=== PATIENT | male | born 1940 | race Caucasian/White ===

== ENCOUNTER → 2019-02-10 | Outpatient (CLI) | payer MEDICARE ==
--- NOTE | 2019-02-10 14:08 | CT ---
EXAMINATION TYPE: CT abdomen pelvis w con DATE OF EXAM: 02/10/2019 COMPARISON: None HISTORY: Prostate cancer CT DLP: 1551.7 mGycm Automated exposure control for dose reduction was used. TECHNIQUE: Helical acquisition of images from the lung bases through the pelvis have been completed. CONTRAST: Performed with Oral Contrast and with IV Contrast, patient injected with 100 mL of Isovue 300. FINDINGS: There are coronary artery calcifications present. Left inguinal hernia is noted containing fat and soft tissue possibly due to some local inflammatory change. LUNG BASES: No significant abnormality is appreciated. AORTA: No significant abnormality is appreciated. LIVER/GB: Liver shows low attenuation possibly due to hepatic steatosis. Liver is enlarged. Gallbladd er is normal. PANCREAS: No significant abnormality is seen. SPLEEN: No significant abnormality is seen. ADRENALS: No significant abnormality is seen. KIDNEYS: No significant abnormality is seen. REPRODUCTIVE ORGANS: Prostate shows multiple metallic seeds present within its substance. BOWEL: Some diverticular changes associated with the sigmoid colon. The appendix is normal. There is no bowel obstruction. FREE AIR: No Free Air visible. ASCITES: None visible. PELVIC ADENOPATHY: None visualized. RETROPERITONEAL ADENOPATHY: No Retroperitoneal Adenopathy visible. URINARY BLADDER: No significant abnormality is seen. OSSEOUS STRUCTURES: Degenerative disc changes, facet arthropathy noted especially in the lumbar spin e. IMPRESSION: FINDINGS COMPATIBLE WITH POST TREATMENT CHANGE THE PROSTATE. HEPATIC STEATOSIS WITH HEPATOMEGALY. DIV ERTICULOSIS. LEFT INGUINAL HERNIA.
--- NOTE | 2019-02-10 16:16 | NM ---
EXAMINATION TYPE: NM bone scan whole body DATE OF EXAM: 02/10/2019 COMPARISON: CT of the abdomen and pelvis dated 02/10/2019 HISTORY: Prostate cancer. Delayed whole-body scanning was performed following the injection of 24.6 mCi Tc 99m MDP. Images acq uired 3 hours post injection. FINDINGS: There is S-shaped scoliosis of the thoracolumbar spine. Uptake is seen diffusely with no focality. Sy mmetric uptake is also seen of the glenohumeral joints, chromic clavicular joints, sternoclavicular j oints, and sacroiliac joints. Photopenic defect of the right knee is seen from prior arthroplasty. Fo aspen uptake overlying the left patellar region and left lateral femoral condyle as well as left first metatarsal phalangeal joint are presumed to be due to arthropathy although correlation with radiograp hs is recommended. Uptake is also seen in the hindfeet and mid feet, likely degenerative. Subtle upta ke of the ninth rib on the left posteriorly. This is also seen to a lesser degree of the bilateral 10 th ribs on the small [id number] images. Focal uptake is also seen near the spinous process of S1 a nd left sacroiliac joint that is slightly asymmetric to the right. Some asymmetric sclerosis is seen on CT of the same date on axial series 3 image 58. IMPRESSION: 1. Foci of radiotracer uptake within the bilateral posterior 10th rib and left ninth rib may be postt raumatic or less likely neoplastic. Correlation with rib radiographs is recommended. 2. Focal radiotracer uptake within the left knee and left first metatarsophalangeal joint are presume d to be degenerative however correlation with x-rays are also recommended. 3. Slight focal radiotracer uptake along the left sacroiliac joint and spinous process of S1 correspo nding to very subtle sclerosis of the CT of the same date. This is possibly degenerative. Attention o n follow-up exams. 4. Degenerative changes of the axial and appendicular skeleton.
== END | disposition home or self-care (01) ==
LOC: RADNMMAIN 09:54
PROVIDERS: ATTEND Urology
DX: C61 Malignant neoplasm of prostate (principal); K76.0 Fatty (change of) liver, not elsewhere classified; R16.0 Hepatomegaly, not elsewhere classified; K57.30 Diverticulosis of large intestine without perforation or abscess without bleeding; K40.90 Unilateral inguinal hernia, without obstruction or gangrene, not specified as recurrent; R93.7 Abnormal findings on diagnostic imaging of other parts of musculoskeletal system; Z88.1 Allergy status to other antibiotic agents
CPT/HCPCS: 82565; 84520; 74177; 36415; 78306; A9503; Q9967 ×2

== ENCOUNTER → 2019-02-18 | Outpatient (CLI) | payer MEDICARE | END | disposition home or self-care (01) | LOC: LABWHC1 12:31 | PROVIDERS: ATTEND Radiology Radiation Oncology | DX: C61 Malignant neoplasm of prostate (principal) | CPT/HCPCS: 36415; 84153 ==

== ENCOUNTER → 2019-06-08 | Outpatient (CLI) | payer MEDICARE ==
[2019-06-08 11:27] LABS: African American GFR (CKD) >90 (>60 ml/min/1.73 sqM); Blood Urea Nitrogen 23 mg/dL (9-20); Non-African American GFR(CKD) 83 (>60 ml/min/1.73 sqM)
--- NOTE | 2019-06-08 16:00 | CT ---
EXAMINATION TYPE: CT pelvis wo/w con DATE OF EXAM: 06/08/2019 COMPARISON: None HISTORY: prostate CA follow up CT DLP: 2193 mGycm Automated exposure control for dose reduction was used. CONTRAST: Performed without and with IV Contrast, patient injected with 100 mL of Isovue 300. FINDINGS: CT pelvis: Vascular calcification is in the distal abdominal aorta. The distal inferior vena cava is unremarkable. Loops of bowel distended with oral contrast are normal. There are loops of bowel lacking oral contras t limiting their evaluation. Diverticular changes are within the distal sigmoid colon. There is a lef t inguinal hernia containing mesenteric fat. The appendix is visualized is normal. Urinary bladder is normal. Multiple prostate seeds are within the periphery of the prostate. Rectum appears unremarkable. Presac ral space is normal The osseous structures are without lytic or suspicious sclerotic areas. Couple of tiny punctate scler otic areas within the left femoral head in the medial left iliac wing. Degenerative disc changes are noted L5-S1. IMPRESSION: STATUS POST PROSTATE BRACHYTHERAPY SEED PLACEMENT. 2. LEFT INGUINAL HERNIA. 3. NO SUSPICIOUS INTERVAL CHANGES
== END | disposition home or self-care (01) ==
LOC: RADCTMAIN 10:27
PROVIDERS: ATTEND Radiology Radiation Oncology
DX: K40.90 Unilateral inguinal hernia, without obstruction or gangrene, not specified as recurrent (principal); C61 Malignant neoplasm of prostate; Z98.890 Other specified postprocedural states
CPT/HCPCS: 82565; 84520; 72194; 36415; Q9967

== ENCOUNTER → 2022-08-30 | Outpatient (CLI) | payer MEDICARE ==
--- NOTE | 2022-08-30 14:43 | NM ---
EXAMINATION TYPE: NM bone scan whole body DATE OF EXAM: 08/30/2022 COMPARISON: Prior whole body bone scan February 10, 2019. Outside lumbar spine x-ray August 03, 2022. CT abdomen February 10, 2019 CLINICAL INDICATION: Male, 81 years old with history of M47.817; history of prostate cancer. Lumbar r egion spinal stenosis and spondylosis along with scoliosis and weakness. Recent abnormal outside lumb ar spine MRI T12 level. Delayed whole-body scanning was performed following the injection of 23.2 mCi Tc 99m MDP. Images acq uired 3 hours post injection. Whole body images anterior and posterior projection along with addition al spot views of the head, neck, Thorax and abdomen are acquired. FINDINGS: No suspicious increased radiotracer uptake to the T12 level at area of concern prior outsid e MRI report. Increased radiotracer uptake bilateral sternoclavicular joints is presumed product of degenerative ch levi. Small additional areas of increased radiotracer uptake in the lower cervical spine favor produc t of degenerative change given lack of additional areas of abnormal radiotracer uptake. Some urine le akage is noted. No convincing scintigraphic evidence of metastatic disease to the bone IMPRESSION: As above.
== END | disposition home or self-care (01) ==
LOC: RADNMMAIN 09:50
PROVIDERS: ATTEND Physical Medicine & Rehabilitation
DX: M47.817 Spondylosis without myelopathy or radiculopathy, lumbosacral region (principal); M48.062 Spinal stenosis, lumbar region with neurogenic claudication; R53.1 Weakness; M41.86 Other forms of scoliosis, lumbar region; M48.061 Spinal stenosis, lumbar region without neurogenic claudication; M47.816 Spondylosis without myelopathy or radiculopathy, lumbar region; Z85.46 Personal history of malignant neoplasm of prostate; Z86.69 Personal history of other diseases of the nervous system and sense organs
CPT/HCPCS: 78306; A9503

== ENCOUNTER 2023-07-19 13:15 | Inpatient (IN) | payer MEDICARE ==
--- NOTE | 2023-07-19 13:41 | ED ---
General Adult HPI - General Chief complaint: Recheck/Abnormal Lab/Rx Stated complaint: Sent by PCP-poss L leg blood clot Time Seen by Provider: 07/19/23 13:29 Source: patient, RN notes reviewed, old records reviewed Mode of arrival: ambulatory - History of Present Illness Initial comments: 82-year-old male presenting with left leg swelling. Patient was sent from outpatient ultrasound with positive DVT. Patient states he has had left leg swelling and pain for the past several weeks. He does also report exertional dyspnea. He denies central chest pain. - Related Data Allergies Allergy/AdvReac Type Severity Reaction Status Date / Time No Known Allergies Allergy Verified 07/19/23 13:25 Review of Systems ROS Statement: Those systems with pertinent positive or pertinent negative responses have been documented in the HPI. ROS Other: All systems not noted in ROS Statement are negative. Past Medical History Past Medical History: Hypertension History of Any Multi-Drug Resistant Organisms: None Reported Additional Past Surgical History / Comment(s): cataract. right knee replacement Past Psychological History: No Psychological Hx Reported Smoking Status: Never smoker Past Alcohol Use History: None Reported Past Drug Use History: None Reported General Exam General appearance: alert, in no apparent distress Head exam: Present: atraumatic, normocephalic Eye exam: Present: normal appearance, PERRL ENT exam: Present: normal exam Neck exam: Present: normal inspection. Absent: tenderness, meningismus Respiratory exam: Present: normal lung sounds bilaterally. Absent: respiratory distress, wheezes, rales Cardiovascular Exam: Present: regular rate, normal rhythm GI/Abdominal exam: Present: soft. Absent: distended, tenderness, guarding Extremities exam: Present: pedal edema (Left leg swelling, pedal edema, mild erythema) Neurological exam: Present: alert, oriented X3 Psychiatric exam: Present: normal affect Course Vital Signs 07/19/23 07/19/23 13:17 15:05 Temperature 97.3 F L Pulse Rate 86 78 Respiratory 18 16 Rate Blood Pressure 147/74 153/76 O2 Sat by Pulse 97 96 Oximetry Medical Decision Making - Medical Decision Making Was pt. sent in by a medical professional or institution (, PA, TELEPHONE ANSWERER, urgent care, hospital, or correction...) When possible be specific @ -No Did you speak to anyone other than the patient for history (EMS, parent, family, police, friend...)? What history was obtained from this source @ -No Did you review nursing and triage notes (agree or disagree)? Why? @ -I reviewed and agree with nursing and triage notes Were old charts reviewed (outside hosp., previous admission, EMS record, old EKG, old radiological studies, urgent care reports/EKG's, correction records)? Report findings @ -No old charts were reviewed Differential Diagnosis (chest pain, altered mental status, abdominal pain women, abdominal pain men, vaginal bleeding, weakness, fever, dyspnea, syncope, headache, dizziness, GI bleed, back pain, seizure, CVA, palpatations, mental health, musculoskeletal)? @ -Not applicable EKG interpreted by me (3pts min.). @ -Sinus rhythm low voltage rate of 76, NE interval 173, QRS duration 90, QTc 358, no ST segment elevation. X-rays interpreted by me (1pt min.). @ -None done CT interpreted by me (1pt min.). @ -CT angiography positive for bilateral pulmonary embolism. U/S interpreted by me (1pt. min.). @ -None done What testing was considered but not performed or refused? (CT, X-rays, U/S, labs)? Why? @ -None What meds were considered but not given or refused? Why? @ -None Did you discuss the management of the patient with other professionals (professionals i.e. , PA, TELEPHONE ANSWERER, lab, RT, psych nurse, social security specialist, defence force senior officer, teacher, security flex utility officer, case mgr)? Give summary @ -Dr. Deleon Was smoking cessation discussed for >3mins.? @ -No Was critical care preformed (if so, how long)? @Yes, 35 minutes Were there social determinants of health that impacted care today? How? ( Homelessness, low income, unemployed, alcoholism, drug addiction, transportation, low edu. Level, literacy, decrease access to med. care, long term, rehab)? @ -No Was there de-escalation of care discussed even if they declined (Discuss DNR or withdrawal of care, Hospice)? DNR status @ -No What co-morbidities impacted this encounter? (DM, HTN, Smoking, COPD, CAD, Cancer, CVA, ARF, Chemo, Hep., AIDS, mental health diagnosis, sleep apnea, morbid obesity)? @ -None Was patient admitted / discharged? Hospital course, mention meds given and route, prescriptions, significant lab abnormalities, going to OR and other pertinent info. @ -[82-year-old male presenting from outpatient ultrasound positive for DVT. Patient does have exertional dyspnea. Vital signs are stable. Workup is initiated for pulmonary embolism. Patient has stable hemoglobin, normal electrolytes, negative initial troponin. CT angiography is positive for bilateral pulmonary embolism without right heart strain. Echo will be obtained as well as serial cardiac enzymes. Patient is admitted to Dr. Deleon who is aware with vascular surgery on consult. Undiagnosed new problem with uncertain prognosis? @ -No Drug Therapy requiring intensive monitoring for toxicity (Heparin, Nitro, Insulin, Cardizem)? @ -No Were any procedures done? @ -No Diagnosis/symptom? @ -Bilateral pulmonary embolism, DVT Acute, or Chronic, or Acute on Chronic? @Acute Uncomplicated (without systemic symptoms) or Complicated (systemic symptoms)? @ -Complicated Side effects of treatment? @ -No Exacerbation, Progression, or Severe Exacerbation? @ -No Poses a threat to life or bodily function? How? (Chest pain, [place], [place], pneumonia, PE, COPD, DKA, ARF, appy, cholecystitis, CVA, Diverticulitis, Homicidal, Suicidal, threat to staff... and all critical care pts) @ -Yes, pulmonary embolism - Lab Data Result diagrams: 07/19/23 13:47 07/19/23 13:47 Lab Results 07/19/23 07/19/23 07/19/23 Range/Units 13:47 13:47 13:47 WBC 8.9 (3.8-10.6) k/uL RBC 4.80 (4.30-5.90) m/uL Hgb 15.1 (13.0-17.5) gm/dL Hct 47.5 (39.0-53.0) % MCV 99.0 (80.0-100.0) fL MCH 31.3 (25.0-35.0) pg MCHC 31.7 (31.0-37.0) g/dL RDW 13.7 (11.5-15.5) % Plt Count 148 L (150-450) k/uL MPV 7.4 Neutrophils % 83 % Lymphocytes % 8 % Monocytes % 7 % Eosinophils % 0 % Basophils % 1 % Neutrophils # 7.4 (1.3-7.7) k/uL Lymphocytes # 0.7 L (1.0-4.8) k/uL Monocytes # 0.6 (0-1.0) k/uL Eosinophils # 0.0 (0-0.7) k/uL Basophils # 0.1 (0-0.2) k/uL PT 10.3 (10.0-12.5) sec INR 0.9 (<1.2) APTT 23.5 (22.0-30.0) sec Sodium 137 (137-145) mmol/L Potassium 5.8 H (3.5-5.1) mmol/L Chloride 107 (98-107) mmol/L Carbon Dioxide 24 (22-30) mmol/L Anion Gap 6 mmol/L BUN 28 H (9-20) mg/dL Creatinine 0.81 (0.66-1.25) mg/dL Est GFR (CKD-EPI)AfAm >90 (>60 ml/min/1.73 sqM) Est GFR (CKD-EPI)NonAf 83 (>60 ml/min/1.73 sqM) Glucose 111 H (74-99) mg/dL Calcium 9.5 (8.4-10.2) mg/dL Magnesium 2.2 (1.6-2.3) mg/dL Total Bilirubin 1.7 H (0.2-1.3) mg/dL AST 44 (17-59) U/L ALT 6 (4-49) U/L Alkaline Phosphatase 79 (38-126) U/L Troponin I (0.000-0.034) ng/mL Total Protein 7.2 (6.3-8.2) g/dL Albumin 4.0 (3.5-5.0) g/dL 07/19/23 Range/Units 13:47 WBC (3.8-10.6) k/uL RBC (4.30-5.90) m/uL Hgb (13.0-17.5) gm/dL Hct (39.0-53.0) % MCV (80.0-100.0) fL MCH (25.0-35.0) pg MCHC (31.0-37.0) g/dL RDW (11.5-15.5) % Plt Count (150-450) k/uL MPV Neutrophils % % Lymphocytes % % Monocytes % % Eosinophils % % Basophils % % Neutrophils # (1.3-7.7) k/uL Lymphocytes # (1.0-4.8) k/uL Monocytes # (0-1.0) k/uL Eosinophils # (0-0.7) k/uL Basophils # (0-0.2) k/uL PT (10.0-12.5) sec INR (<1.2) APTT (22.0-30.0) sec Sodium (137-145) mmol/L Potassium (3.5-5.1) mmol/L Chloride (98-107) mmol/L Carbon Dioxide (22-30) mmol/L Anion Gap mmol/L BUN (9-20) mg/dL Creatinine (0.66-1.25) mg/dL Est GFR (CKD-EPI)AfAm (>60 ml/min/1.73 sqM) Est GFR (CKD-EPI)NonAf (>60 ml/min/1.73 sqM) Glucose (74-99) mg/dL Calcium (8.4-10.2) mg/dL Magnesium (1.6-2.3) mg/dL Total Bilirubin (0.2-1.3) mg/dL AST (17-59) U/L ALT (4-49) U/L Alkaline Phosphatase (38-126) U/L Troponin I <0.012 (0.000-0.034) ng/mL Total Protein (6.3-8.2) g/dL Albumin (3.5-5.0) g/dL Critical Care Time Critical Care Time: Yes Total Critical Care Time: 35 Disposition Clinical Impression: Bilateral pulmonary embolism Disposition: ADMITTED IP TO THIS [facility] Condition: Stable Is patient prescribed a controlled substance at d/c from ED?: No Referrals: Keivn Quinonez MD [Primary Care Provider] - 1-2 days Time of Disposition: 15:34
[2023-07-19 14:16] LABS: Basophils # (A) 0.1 k/uL (0-0.2); Basophils % (A) 1 %; Eosinophils % (A) 0 %; HCT 47.5 % (39.0-53.0); HGB 15.1 gm/dL (13.0-17.5); Lymphocytes # (A) 0.7 k/uL (1.0-4.8); Lymphocytes % (A) 8 %; MCH 31.3 pg (25.0-35.0); MCHC 31.7 g/dL (31.0-37.0); Mean Platelet Volume 7.4; Monocytes # (A) 0.6 k/uL (0-1.0); Monocytes % (A) 7 %; Neutrophils # (A) 7.4 k/uL (1.3-7.7); Neutrophils % (A) 83 %; Platelet Count 148 k/uL (150-450); RDW 13.7 % (11.5-15.5); WBC 8.9 k/uL (3.8-10.6)
[2023-07-19 14:21] LABS: INR 0.9 (<1.2); Partial Thromboplastin Time 23.5 sec (22.0-30.0); Prothrombin Time 10.3 sec (10.0-12.5)
[2023-07-19] MEDS ORDERED: HEPARIN SODIUM 1,000 UN/ML (10ML VL) IV PRN (14:29)
[2023-07-19 14:32] LABS: ALT 6 U/L (4-49); AST 44 U/L (17-59); African American GFR (CKD) >90 (>60 ml/min/1.73 sqM); Alkaline Phosphatase 79 U/L (38-126); Anion Gap 6 mmol/L; Blood Urea Nitrogen 28 mg/dL (9-20); Calcium 9.5 mg/dL (8.4-10.2); Carbon Dioxide 24 mmol/L (22-30); Chloride 107 mmol/L (98-107); Glucose 111 mg/dL (74-99); Magnesium 2.2 mg/dL (1.6-2.3); Non-African American GFR(CKD) 83 (>60 ml/min/1.73 sqM); Sodium 137 mmol/L (137-145); Total Bilirubin 1.7 mg/dL (0.2-1.3); Total Protein 7.2 g/dL (6.3-8.2)
[2023-07-19 14:37] LABS: Potassium 5.8 mmol/L (3.5-5.1)
[2023-07-19] MEDS: HEPARIN SOD,PORK IN 0.45% NACL 25,000 UNIT in 0.45% NACL 1 250ML.BAG IV SCH (15:00)
[2023-07-19] MEDS: HEPARIN SODIUM 1,000 UN/ML (10ML VL) IV ONE (15:02)
[2023-07-19] MEDS ORDERED: NALOXONE 0.4 MG/ML 1 ML VIAL IV PRN (15:29)
--- NOTE | 2023-07-19 15:33 | CT ---
EXAMINATION TYPE: CT angio chest DATE OF EXAM: 07/19/2023 3:08 PM COMPARISON: 07/08/2015 HISTORY: SOB, hx of DVT CT DLP: 526.4 mGycm Automated exposure control for dose reduction was used. CONTRAST: CTA scan of the thorax is performed with IV Contrast, patient injected with 100 ml mL of Isovue 370, pulmonary embolism protocol. . FINDINGS: LUNGS: Motion limits evaluation. There is bilateral subsegmental areas of consolidation most typical of atelectasis. No diagnostic evidence of pneumonia. No suspicious appearing pulmonary nodule or mass . MEDIASTINUM: Filling defects within the secondary branch of the right upper lobe pulmonary artery and a right lower lobe pulmonary artery extending into distal segments. Small filling defects are also s een within the secondary branch and distal left maintained pulmonary artery compatible with bilateral acute PE. No diagnostic evidence of RV strain. Pulmonary artery measures 3.5 cm correlate for pulmonary arterial hypertension. No pathologic adenopa thy. The heart is enlarged and there is coronary artery calcification. Mild atherosclerotic changes of aor ta with no diagnostic evidence of aneurysm. There is a trace of pericardial fluid. OTHER: Trace gynecomastia. Hypertrophic degenerative change of the spine. There is a small hiatal he rnia. Previous rotator cuff repair surgery left shoulder. Glenohumeral joint arthropathy. IMPRESSION: 1. Acute bilateral pulmonary embolism with no definite RV strain.
--- NOTE | 2023-07-19 21:35 | CA ---
Transthoracic Echo Report Name: Jerome Hart Age: 82 Gender: M : 1940 Exam Date: 07/19/2023 17:20 Exam Location: [place] [place] [facility] Ht (in): 66 Wt (lb): 212 Ordering Physician: Zhang Valenzuela MD Attending/Referring Phys: [id number], Nicolas C [employer] Developer JolieMichael RDCS Procedure CPT: Indications: PE Cardiac Hx: Technical Quality: Very technically difficult study Contrast 1: Definity Total Dose (mL): 3 Contrast 2: Total Dose (mL): MEASUREMENTS (Male / Female) Normal Values 2D ECHO LVOT Diameter 2.4 cm Aortic Root Diameter 3.5 cm DOPPLER AV Peak Velocity 153.8 cm/s AV Peak Gradient 9.5 mmHg AV Mean Velocity 103.0 cm/s AV Mean Gradient 4.9 mmHg AV Velocity Time Integral 25.2 cm LVOT Peak Velocity 107.0 cm/s LVOT Peak Gradient 4.6 mmHg LVOT Velocity Time Integral 22.8 cm LVOT Stroke Volume 99.7 cm??? LVOT Stroke Volume Index 48.6 ml/m??? LVOT Cardiac Index 3565.8 cm???/min???m??? AV Area Cont Eq vti 4.0 cm??? AV Area Cont Eq pk 3.0 cm??? Mitral E Point Velocity 56.5 cm/s Mitral A Point Velocity 89.0 cm/s Mitral E to A Ratio 0.6 MV Deceleration Time 161.7 ms MV E' Velocity 8.3 cm/s Mitral E to MV E' Ratio 6.8 PV Peak Velocity 70.0 cm/s PV Peak Gradient 2.0 mmHg FINDINGS Left Ventricle Normal left ventricular systolic function with no obvious regional wall motion abnormalities. Left ventricular ejection fraction is estimated at 50-55 %. Right Ventricle Normal right ventricular size. Right Atrium Normal right atrial size. Left Atrium Normal left atrial size. Mitral Valve Trace mitral regurgitation. Aortic Valve No aortic regurgitation. Tricuspid Valve Trace tricuspid regurgitation. Pulmonic Valve No pulmonic regurgitation. Pericardium No pericardial effusion. Aorta Normal size aortic root. CONCLUSIONS Technically difficult study. LVEF 55% No obvious regional wall motion abnormality No significant valve dysfunction Previewed by: Dr Antonino Mason (Electronically Signed) Final Date: 19 July 2023 21:34
[2023-07-19] MEDS: ACETAMINOPHEN TAB 325 MG TAB PO PRN (23:06)
[2023-07-20 08:30] LABS: Basophils % (A) 0 %; Eosinophils % (A) 0 %; HCT 45.4 % (39.0-53.0); HGB 14.6 gm/dL (13.0-17.5); Lymphocytes # (A) 0.9 k/uL (1.0-4.8); Lymphocytes % (A) 9 %; MCH 31.6 pg (25.0-35.0); MCHC 32.1 g/dL (31.0-37.0); MCV 98.3 fL (80.0-100.0); Mean Platelet Volume 7.2; Monocytes # (A) 0.5 k/uL (0-1.0); Monocytes % (A) 6 %; Neutrophils # (A) 7.7 k/uL (1.3-7.7); Neutrophils % (A) 83 %; Platelet Count 149 k/uL (150-450); RBC 4.62 m/uL (4.30-5.90); RDW 13.7 % (11.5-15.5); WBC 9.3 k/uL (3.8-10.6)
[2023-07-20] MEDS: CARBIDOPA-LEVODOPA ER 50-200MG 1 EACH TABLET.ER PO SCH (11:03)
--- NOTE | 2023-07-20 13:08 | P.HPIM ---
History of Present Illness H&P Date: 07/20/23 History of present illness; patient 82-year-old gentleman sent in from outpatient settings for a positive DVT in left leg. Patient said that he has been having left leg swelling and pain for the last few weeks. Patient also complaining of exertional dyspnea. There is no complaint of chest pain. Denies any orthopnea or PND. Because of this left leg swelling, patient was scheduled to undergo ultrasound which was indicative of for DVT, patient was referred to the ER. Initial lab work done in the ER showed WBC 8.9, hemoglobin 15.1, platelet count 148, sodium 137, potassium 5.8 BUN 28, creatinine 0.81 magnesium is 2.2, troponin 0.012 EKG done in the ER showed heart rate of 76, no ST segment elevation or depression seen, no T-wave inversions seen. Chest x-ray done in the ER CTA chest done showed acute bilateral PE with no definite right ventricular strain Patient admitted to internal medicine service REVIEW OF SYSTEMS: CONSTITUTIONAL: No fever, no malaise, no fatigue. HEENT: No recent visual problems or hearing problems. Denied any sore throat. CARDIOVASCULAR: Mentioned HPI PULMONARY: Mentioned in HPI GASTROINTESTINAL: No diarrhea, no nausea, no vomiting, no abdominal pain. NEUROLOGICAL: No headaches, no weakness, no numbness. HEMATOLOGICAL: Denies any bleeding or petechiae. GENITOURINARY: Denies any burning micturition, frequency, or urgency. MUSCULOSKELETAL/RHEUMATOLOGICAL: As mentioned HPI ENDOCRINE: Denies any polyuria or polydipsia. The rest of the 14-point review of systems is negative. PHYSICAL EXAMINATION: GENERAL: The patient is alert and oriented x3, not in any acute distress. Well developed, well nourished. HEENT: Pupils are round and equally reacting to light. EOMI. No scleral icterus. No conjunctival pallor. Normocephalic, atraumatic. No pharyngeal erythema. No thyromegaly. CARDIOVASCULAR: S1 and S2 present. No murmurs, rubs, or gallops. PULMONARY: Chest is clear to auscultation, no wheezing or crackles. ABDOMEN: Soft, nontender, nondistended, normoactive bowel sounds. No palpable organomegaly. MUSCULOSKELETAL: Left lower extremity is swollen EXTREMITIES: No cyanosis, clubbing, NEUROLOGICAL: Gross neurological examination did not reveal any focal deficits. SKIN: No rashes. Assessment and plan Bilateral PE left lower extremity DVT Hypertension History of parkinsonism Monitor vital signs Monitor CBC Monitor CMP Continue telemetry monitoring 2D echo was ordered, does not show any wall motion abnormalities, LVEF of 55% Continue pharmacy to dose heparin Consult vascular surgery Consult hematology oncology Resume home meds Labs and medication were reviewed.. Continue same treatment. Continue with symptomatic treatment. Resume home medication. Monitor labs and vitals. DVT and GI prophylaxis. Further recommendations as per clinical course of the patient Dictation was produced using [employer] dictation software. please excuse any grammatical, word or spelling errors. Past Medical History Past Medical History: Cancer, Hypertension Additional Past Medical History / Comment(s): prostate ca History of Any Multi-Drug Resistant Organisms: None Reported Additional Past Surgical History / Comment(s): cataract. right knee replacement Past Anesthesia/Blood Transfusion Reactions: No Reported Reaction Past Psychological History: No Psychological Hx Reported Smoking Status: Never smoker Past Alcohol Use History: None Reported Past Drug Use History: None Reported - Past Family History Father Family Medical History: No Reported History Mother Family Medical History: Myocardial Infarction ([place]) Medications and Allergies Home Medications Medication Instructions Recorded Confirmed Type Aspirin EC [Ecotrin] 325 mg PO MOTUWETHFRSA 07/19/23 07/19/23 History Carbidopa-Levodopa ER 50-200Mg 1 tab PO AC-BID 07/19/23 07/19/23 History [Sinemet CR 50-200 mg] Carbidopa/Levodopa [Sinemet 25-100 1 tab PO HS 07/19/23 07/19/23 History mg] Multivit-Mins/Iron/Folic/Lycop 1 tab PO DAILY 07/19/23 07/19/23 History [Centrum Men's Tablet] Tamsulosin HCl [Flomax] 0.8 mg PO DAILY 07/19/23 07/19/23 History lisinopriL [Prinivil] 10 mg PO DAILY 07/19/23 07/19/23 History Allergies Allergy/AdvReac Type Severity Reaction Status Date / Time No Known Allergies Allergy Verified 07/19/23 15:47 Physical Exam Vitals: Vital Signs Temp Pulse Pulse Resp BP BP Pulse Ox 07/20/23 08:53 70 16 07/20/23 08:52 97.8 F 70 16 161/74 97 03/23/24 04:00 72 16 151/73 95 07/20/23 00:00 81 18 160/85 96 07/19/23 22:32 97.9 F 76 18 164/85 98 07/19/23 22:10 72 18 142/84 95 07/19/23 19:38 81 18 109/92 94 L 07/19/23 18:07 82 16 138/62 94 L 07/19/23 15:05 78 16 153/76 96 07/19/23 13:17 97.3 F L 86 18 147/74 97 Intake and Output 07/19/23 07/20/23 07/20/23 22:59 06:59 14:59 Intake Total 237.999 70.101 Balance 237.999 70.101 Intake: Intake, IV Titration 237.999 70.101 Amount Heparin Sod,Pork in 0.45% 237.999 70.101 NaCl 25,000 unit In 0.45 % NaCl 1 250ml.bag @ 18 UNITS/KG/HR 17.309 mls/hr IV .[id number] [facility] Rx#: [id number] Other: Voiding Method Toilet Toilet Urinal Urinal # Voids 2 Weight 96.162 kg 95.8 kg Results CBC & Chem 7: 07/20/23 08:09 07/19/23 13:47 Labs: Abnormal Lab Results - Last 24 Hours (Table) 07/19/23 07/19/23 07/19/23 Range/Units 13:47 13:47 21:13 Plt Count 148 L (150-450) k/uL Lymphocytes # 0.7 L (1.0-4.8) k/uL APTT 78.3 H (22.0-30.0) sec Potassium 5.8 H (3.5-5.1) mmol/L BUN 28 H (9-20) mg/dL Glucose 111 H (74-99) mg/dL Total Bilirubin 1.7 H (0.2-1.3) mg/dL 07/20/23 07/20/23 Range/Units 08:09 08:09 Plt Count 149 L (150-450) k/uL Lymphocytes # 0.9 L (1.0-4.8) k/uL APTT 95.5 H (22.0-30.0) sec Potassium (3.5-5.1) mmol/L BUN (9-20) mg/dL Glucose (74-99) mg/dL Total Bilirubin (0.2-1.3) mg/dL Thrombosis Risk Factor Assmnt - Choose All That Apply Any of the Below Risk Factors Present?: Yes Each Factor Represents 1 point: Obesity (BMI >25), Swollen legs (current) Other Risk Factors: Yes Each Risk Factor Represents 3 Points: Age 75 years or older Thrombosis Risk Factor Assessment Total Risk Factor Score: 5 Thrombosis Risk Factor Assessment Level: High Risk
--- NOTE | 2023-07-20 15:33 | P.GSCN ---
History of Present Illness Consult date: 07/20/23 Reason for Consult: Left lower extremity deep venous thrombosis with subsequent pulmonary embolism History of present illness: Patient is an 82-year-old male who presented with a diagnosis of left femoral deep venous thrombosis. The patient had been experiencing left leg swelling for approximately 10 days prior to bringing this to anyone's attention. According the patient venous duplex was performed which demonstrated femoral DVT on the left the patient was admitted to the hospital for further therapy. Additionally the patient was experiencing some exertional shortness of breath. CTA of the chest was performed which demonstrated nonhemodynamically significant pulmonary emboli. The patient denied any previous history of deep venous thrombosis or pulmonary embolism. He does wear on occasion support hose due to a history of chronic lower extremity edema. He is a never smoker. He denies any known cardiac disease and specifically myocardial infarction. He did indicate that in 2017 he may have had a transient ischemic attack which resolved shortly thereafter and has never reoccurred. Past Medical History Past Medical History: Cancer, Hypertension Additional Past Medical History / Comment(s): prostate ca History of Any Multi-Drug Resistant Organisms: None Reported Additional Past Surgical History / Comment(s): cataract. right knee replacement Past Anesthesia/Blood Transfusion Reactions: No Reported Reaction Past Psychological History: No Psychological Hx Reported Smoking Status: Never smoker Past Alcohol Use History: None Reported Past Drug Use History: None Reported - Past Family History Father Family Medical History: No Reported History Mother Family Medical History: Myocardial Infarction ([place]) Medications and Allergies Home Medications Medication Instructions Recorded Confirmed Type Aspirin EC [Ecotrin] 325 mg PO MOTUWETHFRSA 07/19/23 07/19/23 History Carbidopa-Levodopa ER 50-200Mg 1 tab PO AC-BID 07/19/23 07/19/23 History [Sinemet CR 50-200 mg] Carbidopa/Levodopa [Sinemet 25-100 1 tab PO HS 07/19/23 07/19/23 History mg] Multivit-Mins/Iron/Folic/Lycop 1 tab PO DAILY 07/19/23 07/19/23 History [Centrum Men's Tablet] Tamsulosin HCl [Flomax] 0.8 mg PO DAILY 07/19/23 07/19/23 History lisinopriL [Prinivil] 10 mg PO DAILY 07/19/23 07/19/23 History Allergies Allergy/AdvReac Type Severity Reaction Status Date / Time No Known Allergies Allergy Verified 07/19/23 15:47 Surgical - Exam Osteopathic Statement: *. No significant issues noted on an osteopathic structural exam other than those noted in the History and Physical/Consult. Vital Signs Temp Pulse Resp BP Pulse Ox 97.3 F L 86 18 147/74 97 07/19/23 13:17 07/19/23 13:17 07/19/23 13:17 07/19/23 13:17 07/19/23 13:17 Patient is awake, alert and cooperative and in no apparent distress. Patient is currently on room air. Neck: Free of adenopathy or bruit. Neurologic: Cranial nerves II through XII are grossly intact. Patient has equal motor strength in both the upper lower extremities. Heart: Regular rate and rhythm without murmur. Lungs: Clear to auscultation bilaterally. Abdomen: Rounded, soft and nontender. Good bowel sounds are noted. Extremities: Radial pulses are intact bilaterally. Patient has a palpable dorsalis pedis pulse on the left and a palpable posterior tibial pulse on the right. Modest edema is noted of the lower extremities bilaterally. Stasis dermatitic changes are noted bilaterally slightly more pronounced on the right than on the left although there are no lower extremity wounds noted. Results - Labs 07/20/23 08:09 07/19/23 13:47 Abnormal Lab Results - Last 24 Hours (Table) 07/19/23 07/20/23 07/20/23 Range/Units 21:13 08:09 08:09 Plt Count 149 L (150-450) k/uL Lymphocytes # 0.9 L (1.0-4.8) k/uL APTT 78.3 H 95.5 H (22.0-30.0) sec - Imaging CT scan - chest: report reviewed, image reviewed EKG: report reviewed Additional studies: CT scan of the chest demonstrates no evidence of right-sided cardiac strain. Echocardiogram demonstrates no evidence of right ventricular strain. Troponins are within normal limits. Assessment and Plan Assessment: 1: Nonhemodynamically significant pulmonary embolism. 2: Left lower extremity DVT per report. Plan: 1: Agree with currently instituted therapy although the patient can be transitioned from IV heparin to novel oral anticoagulant. I would recommend anticoagulation for 6-month timeframe. 2: No indication for pulmonary artery embolism intervention. 3: Would recommend the patient at least use SERAFIN hose for the duration of his hospital stay and conversion to appropriately fitted knee-high 15 to 20 mm gradient support hose. 4: Will sign off. Will reevaluate at your request. Time with Patient: Greater than 30
[2023-07-20] MEDS: CARBIDOPA-LEVODOPA 25-100 MG 1 EACH TAB PO SCH (20:23)
[2023-07-21] MEDS: MULTIVITAMINS, THERA 1 EACH TAB PO SCH (07:43)
[2023-07-21] MEDS: TAMSULOSIN 0.4 MG CAP.ER.24H PO SCH (07:44)
--- NOTE | 2023-07-21 10:03 | US ---
EXAMINATION TYPE: US venous doppler duplex LE RT DATE OF EXAM: 07/21/2023 8:53 AM COMPARISON: NONE CLINICAL INDICATION: Male, 82 years old with history of LLE DVT and PE, baseline; Lt leg DVT 07/18, bi lat PEs SIDE PERFORMED: Left TECHNIQUE: The lower extremity deep venous system is examined utilizing real time linear array sonog jazzy with graded compression, doppler sonography and color-flow sonography. VESSELS IMAGED: Common Femoral Vein Deep Femoral Vein Greater Saphenous Vein * Femoral Vein Popliteal Vein Small Saphenous Vein * Proximal Calf Veins (* superficial vessels) The deep venous system of the right lower extremity from the common femoral vein to the proximal calf veins is patent and compressible with augmentable flow. There are normal waveforms. left prox femoral vein still occluded on comparison IMPRESSION: No evidence of right large semi-DVT from the right common femoral vein to the proximal calf veins.
[2023-07-21 11:37] LABS: Basophils % (A) 0 %; Eosinophils % (A) 0 %; HCT 45.1 % (39.0-53.0); HGB 14.7 gm/dL (13.0-17.5); Lymphocytes % (A) 12 %; MCH 31.7 pg (25.0-35.0); MCHC 32.6 g/dL (31.0-37.0); MCV 97.3 fL (80.0-100.0); Mean Platelet Volume 7.7; Monocytes # (A) 0.8 k/uL (0-1.0); Monocytes % (A) 9 %; Neutrophils # (A) 6.7 k/uL (1.3-7.7); Neutrophils % (A) 77 %; Platelet Count 165 k/uL (150-450); RBC 4.64 m/uL (4.30-5.90); RDW 13.8 % (11.5-15.5); WBC 8.8 k/uL (3.8-10.6)
[2023-07-21 11:56] LABS: ALT 6 U/L (4-49); AST 28 U/L (17-59); African American GFR (CKD) >90 (>60 ml/min/1.73 sqM); Albumin 3.4 g/dL (3.5-5.0); Alkaline Phosphatase 83 U/L (38-126); Anion Gap 6 mmol/L; Blood Urea Nitrogen 22 mg/dL (9-20); Carbon Dioxide 26 mmol/L (22-30); Chloride 103 mmol/L (98-107); Glucose 103 mg/dL (74-99); Non-African American GFR(CKD) 87 (>60 ml/min/1.73 sqM); Potassium 4.7 mmol/L (3.5-5.1); Sodium 135 mmol/L (137-145); Total Bilirubin 1.1 mg/dL (0.2-1.3); Total Protein 6.1 g/dL (6.3-8.2)
--- NOTE | 2023-07-21 13:33 | P.PN ---
Subjective Progress Note Date: 07/21/23 patient 82-year-old gentleman sent in from outpatient settings for a positive DVT in left leg. Patient said that he has been having left leg swelling and pain for the last few weeks. Patient also complaining of exertional dyspnea. There is no complaint of chest pain. Denies any orthopnea or PND. Because of this left leg swelling, patient was scheduled to undergo ultrasound which was indicative of for DVT, patient was referred to the ER. Initial lab work done in the ER showed WBC 8.9, hemoglobin 15.1, platelet count 148, sodium 137, potassium 5.8 BUN 28, creatinine 0.81 magnesium is 2.2, troponin 0.012 EKG done in the ER showed heart rate of 76, no ST segment elevation or depression seen, no T-wave inversions seen. Chest x-ray done in the ER CTA chest done showed acute bilateral PE with no definite right ventricular strain Patient admitted to internal medicine service 07/20. Patient seen and examined. Stated that swelling of left lower extremity has improved. REVIEW OF SYSTEMS: CONSTITUTIONAL: No fever, no malaise,. CARDIOVASCULAR: No chest pain, no palpitations, no syncope. PULMONARY: No shortness of breath, no cough, GASTROINTESTINAL: No diarrhea, no nausea, no vomiting, no abdominal pain. NEUROLOGICAL: No headaches, no weakness, PHYSICAL EXAMINATION: GENERAL: The patient is alert and oriented x3, not in any acute distress. Well developed, well nourished. HEENT: Pupils are round and equally reacting to light. EOMI. No scleral icterus. No conjunctival pallor. Normocephalic, atraumatic. No pharyngeal erythema. No thyromegaly. CARDIOVASCULAR: S1 and S2 present. No murmurs, rubs, or gallops. PULMONARY: Chest is clear to auscultation, no wheezing or crackles. ABDOMEN: Soft, nontender, nondistended, normoactive bowel sounds. No palpable organomegaly. MUSCULOSKELETAL: Left lower extremity swollen EXTREMITIES: No cyanosis, clubbing, or pedal edema. NEUROLOGICAL: Gross neurological examination did not reveal any focal deficits. SKIN: No rashes. Assessment and plan Bilateral PE left lower extremity DVT Hypertension History of parkinsonism Monitor vital signs Monitor CBC Monitor CMP Continue telemetry monitoring 2D echo was ordered, does not show any wall motion abnormalities, LVEF of 55% Continue pharmacy to dose heparin vascular surgery evaluated the patient, recommend oral anticoagulation for 6 months, no need for any surgical intervention Consult hematology oncology Labs and medication were reviewed.. Continue same treatment. Continue with symptomatic treatment. Resume home medication. Monitor labs and vitals. DVT and GI prophylaxis. Further recommendations as per clinical course of the patient Dictation was produced using [employer] dictation software. please excuse any grammatical, word or spelling errors. Objective - Vital Signs Vital signs: Vital Signs Temp 97.8 F 07/21/23 07:34 Pulse 65 07/21/23 07:34 Resp 18 07/21/23 07:34 BP 162/83 07/21/23 07:34 Pulse Ox 97 07/21/23 07:34 FiO2 Intake & Output 07/20/23 07/21/23 07/21/23 18:59 06:59 18:59 Intake Total 933.089 236 Balance 933.089 236 Intake: Intake, IV Titration 219.089 Amount Heparin Sod,Pork in 0.45% 219.089 NaCl 25,000 unit In 0.45 % NaCl 1 250ml.bag @ 18 UNITS/KG/HR 17.309 mls/hr IV .[id number] [facility] Rx#: [id number] Oral 714 [id number] Other: Voiding Method Toilet Toilet Toilet Urinal Urinal Urinal # Voids 1 1 2 # Bowel Movements 1 - Labs CBC & Chem 7: 07/21/23 10:19 07/21/23 10:19 Labs: Abnormal Lab Results - Last 24 Hours (Table) 07/20/23 Range/Units 17:16 APTT 71.0 H (22.0-30.0) sec
--- NOTE | 2023-07-21 19:55 | P.CONS ---
History of Present Illness - Reason for Consult Consult date: 07/21/23 PE/DVT Requesting physician: Aram Goss - Chief Complaint SOB, LLE edema - History of Present Illness Patient is an 82-year-old male with a significant history of hypertension and prostate cancer diagnosed in 2018. He reports he was treated with radiation and has been an observation since with no recurrence of disease. Last PSA was approximately 6 months ago which was normal per patient. Consult was placed for PE and DVT. Patient was being seen by his orthopedic physician for steroid injections at which time left lower extremity edema was noted and Doppler was ob tained. Doppler of left lower extremity was positive for DVT involving the femoral vein and popliteal vein, and patient was subsequently referred to the ER for further evaluation. Heparin drip started. CTA chest obtained revealing acute bilateral pulmonary embolism with no definite RV strain. Echocardiogram normal with EF 55%. CBC reviewed, showing WBC 9.3, hemoglobin 14.6, platelets 149,000. Coags WNL. Troponins negative. Patient states he has been experiencing left lower extremity edema and exertional shortness of breath over the last 3 weeks. Patient denies chest pain, palpitations and dizziness. Patient denies any recent prolonged travel, immobilization or hospitalizations, surgery, or hormone treatment. Does report history of prostate cancer as stated above but states his PSA has been normal and has had no recurrence of disease. Last PDA in EMR was from 04/2019, at 0.2. Denies prior history of blood clots or known personal or family history of blood disorders Review of Systems 10 point ROS is negative except as stated in the HPI Past Medical History Past Medical History: Cancer, Hypertension Additional Past Medical History / Comment(s): prostate ca History of Any Multi-Drug Resistant Organisms: None Reported Additional Past Surgical History / Comment(s): cataract. right knee replacement Past Anesthesia/Blood Transfusion Reactions: No Reported Reaction Past Psychological History: No Psychological Hx Reported Smoking Status: Never smoker Past Alcohol Use History: None Reported Past Drug Use History: None Reported - Past Family History Father Family Medical History: No Reported History Mother Family Medical History: Myocardial Infarction ([place]) Medications and Allergies Home Medications Medication Instructions Recorded Confirmed Type Aspirin EC [Ecotrin] 325 mg PO MOTUWETHFRSA 07/19/23 07/19/23 History Carbidopa-Levodopa ER 50-200Mg 1 tab PO AC-BID 07/19/23 07/19/23 History [Sinemet CR 50-200 mg] Carbidopa/Levodopa [Sinemet 25-100 1 tab PO HS 07/19/23 07/19/23 History mg] Multivit-Mins/Iron/Folic/Lycop 1 tab PO DAILY 07/19/23 07/19/23 History [Centrum Men's Tablet] Tamsulosin HCl [Flomax] 0.8 mg PO DAILY 07/19/23 07/19/23 History lisinopriL [Prinivil] 10 mg PO DAILY 07/19/23 07/19/23 History Apixaban [Eliquis Starter Pack 5 - 10 mg PO DIRECTED 30 Days 07/21/23 Rx (for VTE)] #1 each Allergies Allergy/AdvReac Type Severity Reaction Status Date / Time No Known Allergies Allergy Verified 07/19/23 15:47 Physical Exam Vitals: Vital Signs Temp Pulse Resp BP Pulse Ox 07/21/23 07:34 97.8 F 65 18 162/83 97 07/21/23 04:31 98.1 F 57 L 18 112/58 96 07/20/23 23:00 70 18 144/71 96 07/20/23 20:26 98.0 F 70 18 117/64 95 07/20/23 15:23 52 L 16 131/61 96 07/20/23 11:50 96 07/20/23 11:00 78 16 148/69 94 L 07/20/23 08:53 70 16 07/20/23 08:52 97.8 F 70 16 161/74 97 Intake and Output 07/20/23 07/21/23 07/21/23 22:59 06:59 14:59 Intake Total 266.988 236 Balance 266.988 236 Intake: Intake, IV Titration 148.988 Amount Heparin Sod,Pork in 0.45% 148.988 NaCl 25,000 unit In 0.45 % NaCl 1 250ml.bag @ 18 UNITS/KG/HR 17.309 mls/hr IV .[id number] [facility] Rx#: [id number] Oral 118 236 Other: Voiding Method Toilet Toilet Toilet Urinal Urinal Urinal # Voids 1 1 2 # Bowel Movements 1 - Constitutional General appearance: average body habitus, no acute distress - EENT Eyes: anicteric sclerae, EOMI ENT: hearing grossly normal - Respiratory Respiratory: bilateral: CTA - Cardiovascular Rhythm: regular Heart sounds: normal: S1, S2 leg Peripheral Edema: left: 1+ - Gastrointestinal General gastrointestinal: soft, no tenderness - Integumentary Integumentary: no cyanotic, no jaundiced - Neurologic Neurologic: CNII-XII intact - Musculoskeletal Musculoskeletal: strength equal bilaterally - Psychiatric Psychiatric: A&O x's 3 Results CBC & Chem 7: 07/21/23 10:19 07/21/23 10:19 Labs: Abnormal Lab Results - Last 24 Hours (Table) 07/20/23 Range/Units 17:16 APTT 71.0 H (22.0-30.0) sec Comments: echo reviewed CT scan - chest: report reviewed Venous US: report reviewed Assessment and Plan (1) DVT (deep venous thrombosis) Current Visit: Yes Status: Acute Priority: High Code(s): I82.409 - ACUTE EMBOLISM AND THOMBOS UNSP DEEP VN UNSP LOWER EXTREMITY SNOMED Code(s): 216373446 (2) Bilateral pulmonary embolism Current Visit: Yes Status: Acute Priority: High Code(s): I26.99 - OTHER PULMONARY EMBOLISM WITHOUT ACUTE COR PULMONALE SNOMED Code(s): 88965170 Plan: PE, LLE DVT: Presented with c/o LLE edema and SOB over the last 3 weeks. Patient was being seen by his orthopedic physician for steroid injections at which time left lower extremity edema was noted and Doppler was obtained. Doppler of left lower e xtremity was positive for DVT involving the femoral vein and popliteal vein, and patient was subsequently referred to the ER for further evaluation. -CTA chest was obtained revealing acute bilateral pulmonary embolism with no definite RV strain. Echocardiogram normal with EF 55%. Heparin drip started. - RLE doppler ordered for baseline. Study negative for DVT - Patient denies any recent prolonged travel, immobilization or hospitalizations, surgery, or hormone treatment. Does have history of prostate cancer diagnosed in 2018. He reports he was treated with radiation and has been an observation since with no recurrence of disease. Last PSA was approximately 6 months ago which was normal per patient. Last PSA in EMR was from 04/2019, and was normal at 0.2. Denies prior history of blood clots or known personal or family history of blood clotting disorders -Will recheck PSA, if no recurrence of malignancy is suspected, PE/DVT would be considered unprovoked and would recommend life-long anticoagulation -Case management consulted for Eliquis prior auth, Adenis script sent to [facility] - Will schedule clinic f/u for further anticoagulation management/recommendations Pt and family updated on POC and were agreeable
[2023-07-21] MEDS: guaiFENesin SYRUP 100MG/5ML 200 MG/10 ML CUP PO PRN (23:35)
[2023-07-22 04:24] VITALS: RESP 18
[2023-07-22 11:34] VITALS: TEMP 97.6
[2023-07-22] MEDS: Apixaban Initiation Dose--VTE 5 MG TAB PO SCH (12:30)
--- NOTE | 2023-07-22 12:33 | P.DS ---
Providers Date of admission: 07/19/23 15:30 Expected date of discharge: 07/22/23 Attending physician: Ana Maria Deleon Consults: 07/19/23 15:29 Consult Physician Routine Consulting Provider: Kevin Anderson Consult Reason/Comments: BiLateral PE, DVT Do you want consulting provider notified?: Yes 07/20/23 09:40 Consult Physician Routine Consulting Provider: Apolinar Javier Consult Reason/Comments: Bilateral PE and DVT Do you want consulting provider notified?: Yes Primary care physician: Kevin Santiam Hospital Course: Discharge diagnoses; Bilateral PE left lower extremity DVT Hypertension History of parkinsonism Hospital course; patient 82-year-old gentleman sent in from outpatient settings for a positive DVT in left leg. Patient said that he has been having left leg swelling and pain for the last few weeks. Patient also complaining of exertional dyspnea. There is no complaint of chest pain. Denies any orthopnea or PND. Because of this left leg swelling, patient was scheduled to undergo ultrasound which was indicative of for DVT, patient was referred to the ER. Initial lab work done in the ER showed WBC 8.9, hemoglobin 15.1, platelet count 148, sodium 137, potassium 5.8 BUN 28, creatinine 0.81 magnesium is 2.2, troponin 0.012 EKG done in the ER showed heart rate of 76, no ST segment elevation or depression seen, no T-wave inversions seen. Chest x-ray done in the ER CTA chest done showed acute bilateral PE with no definite right ventricular strain Patient admitted to internal medicine service 07/20. Patient seen and examined. Stated that swelling of left lower extremity has improved. 07/21. Patient seen and examined. Hematology oncology eval the patient recommended transitioning to Eliquis 10 mg twice a day for 7 days followed by 5 mg twice a day. Vascular surgery also evaluated the patient, recommended no surgical intervention. PHYSICAL EXAMINATION: GENERAL: The patient is alert and oriented x3, not in any acute distress. Well developed, well nourished. HEENT: Pupils are round and equally reacting to light. EOMI. No scleral icterus. No conjunctival pallor. Normocephalic, atraumatic. No pharyngeal erythema. No thyromegaly. CARDIOVASCULAR: S1 and S2 present. No murmurs, rubs, or gallops. PULMONARY: Chest is clear to auscultation, no wheezing or crackles. ABDOMEN: Soft, nontender, nondistended, normoactive bowel sounds. No palpable organomegaly. MUSCULOSKELETAL: No joint swelling or deformity. EXTREMITIES: No cyanosis, clubbing, or pedal edema. NEUROLOGICAL: Gross neurological examination did not reveal any focal deficits. SKIN: No rashes. Dictation was produced using [employer] dictation software. please excuse any grammatical, word or spelling errors. Patient Condition at Discharge: Stable Plan - Discharge Summary Discharge Rx Participant: No New Discharge Prescriptions: New Apixaban [Eliquis Starter Pack (for VTE)] 5 - 10 mg PO DIRECTED 30 Days #1 each Continue lisinopriL [Prinivil] 10 mg PO DAILY Tamsulosin HCl [Flomax] 0.8 mg PO DAILY Carbidopa-Levodopa ER 50-200Mg [Sinemet CR 50-200 mg] 1 tab PO AC-BID Multivit-Mins/Iron/Folic/Lycop [Centrum Men's Tablet] 1 tab PO DAILY Aspirin EC [Ecotrin] 325 mg PO MOTUWETHFRSA Carbidopa/Levodopa [Sinemet 25-100 mg] 1 tab PO HS Discharge Medication List Aspirin EC [Ecotrin] 325 mg PO MOTUWETHFRSA 07/19/23 [History] Carbidopa-Levodopa ER 50-200Mg [Sinemet CR 50-200 mg] 1 tab PO AC-BID 07/19/23 [History] Carbidopa/Levodopa [Sinemet 25-100 mg] 1 tab PO HS 07/19/23 [History] Multivit-Mins/Iron/Folic/Lycop [Centrum Men's Tablet] 1 tab PO DAILY 07/19/23 [History] Tamsulosin HCl [Flomax] 0.8 mg PO DAILY 07/19/23 [History] lisinopriL [Prinivil] 10 mg PO DAILY 07/19/23 [History] Apixaban [Eliquis Starter Pack (for VTE)] 5 - 10 mg PO DIRECTED 30 Days #1 each 07/21/23 [Rx] Follow up Appointment(s)/Referral(s): Kevin Quinonez MD [Primary Care Provider] - 07/26/23 9:00 am ([facility]) Patient Instructions/Handouts: Pulmonary Embolism (DC), Deep Vein Thrombosis (DC) Discharge Disposition: HOME SELF-CARE
[2023-07-22 16:53] VITALS: BP 150/70; PULSE 70
== END 2023-07-22 14:44 | disposition home or self-care (01) | DRG 299 ==
LOC: EC 13:15 → 3SCARD 15:30
PROVIDERS: ADMIT Internal Medicine; ATTEND Internal Medicine
DX: I82.412 Acute embolism and thrombosis of left femoral vein (principal); I26.99 Other pulmonary embolism without acute cor pulmonale; G20.C Parkinsonism, unspecified; I10 Essential (primary) hypertension; Z96.651 Presence of right artificial knee joint; Z82.49 Family history of ischemic heart disease and other diseases of the circulatory system; Z85.46 Personal history of malignant neoplasm of prostate; Z79.82 Long term (current) use of aspirin; Z79.899 Other long term (current) drug therapy; Z86.73 Personal history of transient ischemic attack (TIA), and cerebral infarction without residual deficits; Z92.3 Personal history of irradiation
CPT/HCPCS: 36415; 71275; 80053; 83735; 84153; 84484; 85025; 85610; 85730; 93005; 93306; 96365; 96366; 99291

== ENCOUNTER → 2023-07-19 | Outpatient (CLI) | payer MEDICARE ==
--- NOTE | 2023-07-19 13:55 | US ---
EXAMINATION TYPE: US venous doppler duplex LE LT DATE OF EXAM: 07/19/2023 12:57 PM COMPARISON: NONE CLINICAL INDICATION: Male, 82 years old with history of M79.89 OTHER SPECIFIED SOFT TISSUE DISORDERS; Left leg swelling and pain for one month. Patient takes aspirin. SIDE PERFORMED: Left TECHNIQUE: The lower extremity deep venous system is examined utilizing real time linear array sonog jazzy with graded compression, doppler sonography and color-flow sonography. VESSELS IMAGED: Common Femoral Vein Deep Femoral Vein Greater Saphenous Vein * Femoral Vein Popliteal Vein Small Saphenous Vein * Proximal Calf Veins (* superficial vessels) Left Leg: Positive for DVT. Spoke to Hubert Owusu, was told to direct patient to the ER. IMPRESSION: Positive deep vein thrombosis of the left lower extremity involving the femoral vein and popliteal vein.
== END | disposition home or self-care (01) ==
LOC: RADUSWWP 11:55
PROVIDERS: ATTEND Internal Medicine
DX: I82.412 Acute embolism and thrombosis of left femoral vein (principal); I82.432 Acute embolism and thrombosis of left popliteal vein; M79.89 Other specified soft tissue disorders; Z79.82 Long term (current) use of aspirin